=== PATIENT | male | born 1960 | race Hispanic/Latino ===

== ENCOUNTER 2022-01-08 13:14 | Emergency (ER) | payer OTHER ==
[~2022-01-08] VITALS: Ht 167.6 cm; Wt 104.3 kg
[2022-01-08 13:51] LABS: BASOPHILS # (AUTO) 0.1 (0.0-0.1); BASOPHILS % 0.7 % (0.0-1.0); EOSINOPHILS # (AUTO) 0.7 (0.0-0.4); HEMATOCRIT 37.6 % (38.2-49.6); HEMOGLOBIN 12.8 g/dL (14.0-18.0); LYMPHOCYTES # (AUTO) 1.8 (1.0-3.2); LYMPHOCYTES % 21.2 % (18.0-39.1); MEAN CORPUSCULAR HEMOGLOBIN 34.7 pg (28-32); MEAN CORPUSCULAR VOLUME 101.9 fL (81-99); MONOCYTES # (AUTO) 0.8 (0.2-0.8); MONOCYTES % 9.6 % (4.4-11.3); NEUTROPHILS # (AUTO) 4.9 (2.1-6.9); PLATELET COUNT 296 x10e3/uL (140-360); RED BLOOD COUNT 3.69 x10e6/uL (4.3-5.7); RED CELL DISTRIBUTION WIDTH 15.4 % (11.7-14.4)
[2022-01-08] MEDS ORDERED: CLONIDINE HCL 0.3 MG TAB PO ONE (14:00)
[2022-01-08 14:08] LABS: INR 0.87; PROTHROMBIN TIME 12.7 seconds (11.9-14.5)
[2022-01-08 14:09] LABS: PARTIAL THROMBOPLASTIN TIME 25.3 seconds (23.8-35.5)
[2022-01-08] MEDS ORDERED: HYDROCODONE/APAP 5MG-325MG TAB PO ONE (14:15)
[2022-01-08 14:16] LABS: ALBUMIN 3.7 g/dL (3.5-5.0); ALBUMIN/GLOBULIN RATIO 0.8 (0.8-2.0); ANION GAP 19.2 mmol/L (8-16); CALCIUM 9.4 mg/dL (8.4-10.2); CREATININE, SERUM 9.54 mg/dL (0.72-1.25); POTASSIUM 4.2 mmol/L (3.5-5.1)
[2022-01-08 14:27] LABS: CREATINE KINASE MB 1.9 ng/mL (0-5.0)
== END 2022-01-08 15:22 | disposition home or self-care (01) ==
LOC: ER 13:40
DX: R07.9 Chest pain, unspecified (principal); E11.22 Type 2 diabetes mellitus with diabetic chronic kidney disease; I12.0 Hypertensive chronic kidney disease with stage 5 chronic kidney disease or end stage renal disease; N18.6 End stage renal disease; Z99.2 Dependence on renal dialysis
CPT/HCPCS: 36415; 71045; 80053; 82550; 82553; 84484; 85025; 85610; 85730; 93005; 99284

== ENCOUNTER 2022-03-08 19:17 | Observation (INO) | payer OTHER ==
[~2022-03-08] VITALS: Ht 167.6 cm; Wt 108.0 kg
[2022-03-08 19:41] LABS: BASOPHILS # (AUTO) 0.1 (0.0-0.1); BASOPHILS % 0.9 % (0.0-1.0); EOSINOPHILS # (AUTO) 0.8 (0.0-0.4); EOSINOPHILS % 10.7 % (0.0-6.0); HEMATOCRIT 33.5 % (38.2-49.6); HEMOGLOBIN 10.7 g/dL (14.0-18.0); LYMPHOCYTES # (AUTO) 1.5 (1.0-3.2); LYMPHOCYTES % 19.8 % (18.0-39.1); MEAN CORPUSCULAR HGB CONC 31.9 g/dL (31-35); MEAN CORPUSCULAR VOLUME 103.4 fL (81-99); MONOCYTES # (AUTO) 0.7 (0.2-0.8); MONOCYTES % 8.3 % (4.4-11.3); NEUTROPHILS # (AUTO) 4.7 (2.1-6.9); NEUTROPHILS % 59.9 % (38.7-80.0); PLATELET COUNT 258 x10e3/uL (140-360); RED BLOOD COUNT 3.24 x10e6/uL (4.3-5.7); RED CELL DISTRIBUTION WIDTH 13.7 % (11.7-14.4)
[2022-03-08 20:06] LABS: ALBUMIN 3.8 g/dL (3.5-5.0); ANION GAP 19.8 mmol/L (8-16); CALCIUM 8.2 mg/dL (8.4-10.2); CREATININE, SERUM 11.88 mg/dL (0.72-1.25); POTASSIUM 5.8 mmol/L (3.5-5.1)
[2022-03-08 20:17] LABS: CREATINE KINASE MB 1.4 ng/mL (0-5.0)
[2022-03-08] MEDS ORDERED: DEXTROSE 50% SYRINGE 50 ML IV STA (20:18)
[2022-03-08] MEDS ORDERED: CALCIUM CHLORIDE 10% 1.36 MEQ/ML 10ML SYR IV STA (20:18)
[2022-03-08] MEDS ORDERED: SODIUM BICARBONATE 8.4% INJ 50 ML SYR IV STA (20:18)
[2022-03-08] MEDS ORDERED: DEXTROSE 50% SYRINGE 50 ML IV PRN (20:30)
[2022-03-08] MEDS ORDERED: INSULIN REGULAR, HUMAN 100 UNIT/1 ML IV ONE (20:30)
[2022-03-08] MEDS ORDERED: SOD POLYSTYRENE SULFONATE SUSP 15 GM/60 ML BTL PO ONE (20:30)
[2022-03-08] MEDS ORDERED: ONDANSETRON HCL INJ 2MG/ML 2ML 2 MG/ML VIAL IV PRN (20:30)
[2022-03-08] MEDS ORDERED: INSULIN REGULAR, HUMAN 100 UNIT/1 ML ONE (20:38)
[2022-03-08] MEDS: INSULIN REGULAR, HUMAN 100 UNIT/1 ML SQ SCH (21:00)
[2022-03-08 21:58] VITALS: BP 155/83
[2022-03-08] MEDS ORDERED: SODIUM CHLORIDE 0.9% 1000ML 2,000 ML ONE (22:04)
[2022-03-08] MEDS ORDERED: HYDRALAZINE HCL 20 MG/ML VIAL IV PRN (22:30)
[2022-03-08 23:11] VITALS: BP 246/106
[2022-03-09] VITALS (9 sets, daily range): BP systolic 127–211; BP diastolic 60–102
[2022-03-09] MEDS ORDERED: NIFEDIPINE CR 30 MG TAB PO ONE (00:30)
[2022-03-09] MEDS: HEPARIN SOD (PORCINE) 5,000 UNIT/ML VIAL SC SCH ×3 (00:31→20:51)
[2022-03-09] MEDS: ATORVASTATIN 10 MG TAB PO SCH ×2 (00:37→20:46)
[2022-03-09] MEDS ORDERED: NIFEDIPINE ER30 M1 PO (00:43)
[2022-03-09] MEDS ORDERED: LASIX10 MG/ML PO (00:43)
[2022-03-09] MEDS ORDERED: RENA-VITE TABL0.8 MG PO (00:43)
[2022-03-09] MEDS ORDERED: RENAGEL800 MG PO (00:43)
[2022-03-09] MEDS ORDERED: METOPROLOL SUCC25 MG PO (00:43)
[2022-03-09 06:56] LABS: BASOPHILS # (AUTO) 0.1 (0.0-0.1); BASOPHILS % 0.8 % (0.0-1.0); EOSINOPHILS # (AUTO) 0.8 (0.0-0.4); EOSINOPHILS % 9.8 % (0.0-6.0); HEMATOCRIT 35.3 % (38.2-49.6); HEMOGLOBIN 11.3 g/dL (14.0-18.0); LYMPHOCYTES # (AUTO) 1.4 (1.0-3.2); LYMPHOCYTES % 17.9 % (18.0-39.1); MEAN CORPUSCULAR HEMOGLOBIN 32.8 pg (28-32); MEAN CORPUSCULAR VOLUME 102.6 fL (81-99); MONOCYTES # (AUTO) 0.6 (0.2-0.8); MONOCYTES % 8.1 % (4.4-11.3); NEUTROPHILS # (AUTO) 4.9 (2.1-6.9); PLATELET COUNT 259 x10e3/uL (140-360); RED BLOOD COUNT 3.44 x10e6/uL (4.3-5.7); RED CELL DISTRIBUTION WIDTH 13.6 % (11.7-14.4)
[2022-03-09 07:23] LABS: ALBUMIN 3.8 g/dL (3.5-5.0); ALBUMIN/GLOBULIN RATIO 1.1 (0.8-2.0); ANION GAP 18.7 mmol/L (8-16); CALCIUM 8.8 mg/dL (8.4-10.2); CREATININE, SERUM 9.78 mg/dL (0.72-1.25); POTASSIUM 4.7 mmol/L (3.5-5.1)
[2022-03-09] MEDS: INSULIN REGULAR, HUMAN 100 UNIT/1 ML SQ SCH ×4 (07:30→20:25)
[2022-03-09] MEDS: SEVELAMER CARBONATE 800 MG TAB PO SCH ×3 (09:25→18:00)
[2022-03-09] MEDS: NIFEDIPINE CR 30 MG TAB PO SCH (09:26)
[2022-03-09] MEDS: ASPIRIN 81 MG CHEW TAB PO SCH (09:26)
[2022-03-09] MEDS ORDERED: LACTULOSE SYRUP 20 GM/30 ML UDC PO PRN (12:15)
[2022-03-09] MEDS ORDERED: Docusate Sodium PO (13:37)
[2022-03-09] MEDS ORDERED: ASPIRIN CHEW81 MG PO (13:37)
[2022-03-09] MEDS ORDERED: LIPITOR10 MG PO (13:37)
[2022-03-09] MEDS ORDERED: SODIUM CHLORIDE 0.9% 1000ML 1,000 ML ONE (14:02)
[2022-03-09] MEDS: DOCUSATE SODIUM 100 MG CAP PO SCH ×2 (15:00→20:46)
[2022-03-09] MEDS: POLYETHYLENE GLYCOL 3350 17 GM PACK PO SCH (18:00)
[2022-03-10 04:00] VITALS: BP 175/90
[2022-03-10 07:08] LABS: ANION GAP 16.4 mmol/L (8-16); CALCIUM 8.8 mg/dL (8.4-10.2); CREATININE, SERUM 8.13 mg/dL (0.72-1.25); POTASSIUM 4.4 mmol/L (3.5-5.1)
[2022-03-10] MEDS: INSULIN REGULAR, HUMAN 100 UNIT/1 ML SQ SCH (07:30)
[2022-03-10 07:54] VITALS: BP 174/81
[2022-03-10 08:00] VITALS: BP 174/81
[2022-03-10] MEDS: POLYETHYLENE GLYCOL 3350 17 GM PACK PO SCH (08:39)
[2022-03-10] MEDS: DOCUSATE SODIUM 100 MG CAP PO SCH (08:39)
[2022-03-10] MEDS: ASPIRIN 81 MG CHEW TAB PO SCH (08:39)
[2022-03-10] MEDS: HEPARIN SOD (PORCINE) 5,000 UNIT/ML VIAL SC SCH (08:44)
[2022-03-10] MEDS: SEVELAMER CARBONATE 800 MG TAB PO SCH (08:49)
[2022-03-10] MEDS: NIFEDIPINE CR 30 MG TAB PO SCH (08:50)
== END 2022-03-10 12:02 | disposition home or self-care (01) ==
LOC: ER 19:25 → ERHOLD 20:27 → MED/SURG3 21:45
PROVIDERS: ADMIT Internal Medicine; ATTEND Internal Medicine
DX: I12.0 Hypertensive chronic kidney disease with stage 5 chronic kidney disease or end stage renal disease (principal); E11.22 Type 2 diabetes mellitus with diabetic chronic kidney disease; N18.6 End stage renal disease; Z99.2 Dependence on renal dialysis; Z79.899 Other long term (current) drug therapy; E87.5 Hyperkalemia; Z20.822 Contact with and (suspected) exposure to COVID-19; I16.1 Hypertensive emergency; I10 Essential (primary) hypertension; J81.1 Chronic pulmonary edema; I13.11 Hypertensive heart and chronic kidney disease without heart failure, with stage 5 chronic kidney disease, or end stage renal disease
CPT/HCPCS: 36415; 71045; 80048; 80053; 82550; 82553; 82948; 83880; 84484; 85025; 93005; 94799; 99284; G0378; J0360; J1644; J1817; J7030; J7799

== ENCOUNTER 2025-03-22 10:53 | Inpatient (IN) | payer MEDICARE, OTHER ==
[2025-03-22] VITALS (7 sets, daily range): BP systolic 145–171; BP diastolic 58–76; PULSE 88–121; RESP 17–18; TEMP 99.3–100.9; O2SAT 95–98
[~2025-03-22] VITALS: Ht 167.6 cm; Wt 108.0 kg
[~2025-03-22 10:53] MED LIST: ASPIRIN CHEW81 MG PO; Docusate Sodium PO; LASIX10 MG/ML PO; LIPITOR10 MG PO; METOPROLOL SUCC25 MG PO; NIFEDIPINE ER30 M1 PO; RENA-VITE TABL0.8 MG PO; RENAGEL800 MG PO
[2025-03-22 12:54] LABS: BASOPHILS % 0.4 % (0.0-1.0); EOSINOPHILS % 2.7 % (0.0-6.0); LYMPHOCYTES % 8.6 % (18.0-39.1); MONOCYTES % 5.2 % (4.4-11.3); NEUTROPHILS % 82.7 % (38.7-80.0); RED CELL DISTRIBUTION WIDTH 14.3 % (11.7-14.4)
[2025-03-22 13:22] LABS: INR 1.21
[2025-03-22 13:31] LABS: EST GLOMERULAR FILTRATION RATE 5.0 ML/MIN (>=60)
[2025-03-22] MEDS: Morphine 4mg INJECTION 4 MG/ML INJ IV STA (13:43)
[2025-03-22] MEDS: ONDANSETRON HCL INJ 2MG/ML 2ML 2 MG/ML VIAL IV STA (13:43)
[2025-03-22] MEDS ORDERED: HYDRALAZINE HCL 20 MG/ML VIAL IV PRN (14:45)
[2025-03-22] MEDS: HYDRALAZINE HCL 20 MG/ML VIAL IV STA (14:50)
[2025-03-22] MEDS ORDERED: IOPAMIDOL 370 MG/ML 100 ML INFUS..BTL INJ ONE (14:53)
[2025-03-22] MEDS: ALBUTEROL SULF 0.083% NEB SOLN 3 ML NEB NEB STA (15:19)
[2025-03-22] MEDS: SODIUM BICARBONATE 8.4% INJ 50 ML SYR IV STA (15:22)
[2025-03-22] MEDS: CALCIUM GLUC 1 G/50 ML NACL 50 ML IV ONE (15:25)
[2025-03-22] MEDS: INSULIN REGULAR, HUMAN 100 UNIT/1 ML IV ONE (15:34)
[2025-03-22] MEDS: DEXTROSE 50% SYRINGE 50 ML IV STA (15:35)
[2025-03-22] MEDS: Morphine 4mg INJECTION 4 MG/ML INJ IV ONE (15:48)
[2025-03-22] MEDS: ONDANSETRON HCL INJ 2MG/ML 2ML 2 MG/ML VIAL IV PRN (15:48)
[2025-03-22] MEDS ORDERED: DEXTROSE 50% SYRINGE 50 ML IV PRN (22:00)
[2025-03-22] MEDS: SODIUM CHLORIDE 0.9% 1000ML 1,000 ML IV SCH (22:15)
[2025-03-23] VITALS (10 sets, daily range): BP systolic 116–191; BP diastolic 59–75; PULSE 82–114; RESP 18–20; TEMP 98.2–101.1; O2SAT 94–100
[2025-03-23] MEDS: Morphine 4mg INJECTION 4 MG/ML INJ IV PRN (01:53)
[2025-03-23 05:40] LABS: BASOPHILS % 0.3 % (0.0-1.0); EOSINOPHILS % 0.1 % (0.0-6.0); LYMPHOCYTES % 9.5 % (18.0-39.1); MONOCYTES % 7.4 % (4.4-11.3); NEUTROPHILS % 82.2 % (38.7-80.0); RED CELL DISTRIBUTION WIDTH 14.6 % (11.7-14.4)
[2025-03-23 06:07] LABS: EST GLOMERULAR FILTRATION RATE 6.0 ML/MIN (>=60)
[2025-03-23 06:23] LABS: CHOL/HDL RATIO 3.7 (3.9-4.7); LDL CHOLESTEROL 75.0 MG/DL (60-130)
[2025-03-23] MEDS: INSULIN REGULAR, HUMAN 100 UNIT/1 ML SQ SCH (07:30)
[2025-03-23] MEDS: DOCUSATE SODIUM 100 MG CAP PO SCH (09:00)
[2025-03-23] MEDS: SODIUM CHLORIDE 0.9% 1000ML 1,000 ML ONE (11:49)
[2025-03-23] MEDS: HEPARIN SOD (PORCINE) 1000 UNIT/ML SDV ONE (15:41)
[2025-03-23] MEDS ORDERED: HEPARIN SOD (PORCINE) 1000 UNIT/ML SDV IV PRN (16:00)
[2025-03-23] MEDS: NIFEDIPINE CR 30 MG TAB PO SCH (17:00)
[2025-03-23] MEDS: ATORVASTATIN 10 MG TAB PO SCH (20:46)
[2025-03-24] VITALS (8 sets, daily range): BP systolic 115–166; BP diastolic 62–77; PULSE 60–93; RESP 18–20; TEMP 97.4–101; O2SAT 94–99
[2025-03-24 07:32] LABS: EST GLOMERULAR FILTRATION RATE 6.0 ML/MIN (>=60)
[2025-03-24] MEDS ORDERED: LIDOCAINE HCL 2% LOCAL INJ 5 ML SDV VIAL INJ ONE (07:52)
[2025-03-24] MEDS ORDERED: FENTANYL CITRATE/PF 100MCG/2 ML INJ ONE ×2 (07:52→09:28)
[2025-03-24] MEDS ORDERED: ROCURONIUM BROMIDE 1 ML IV ONE (07:53)
[2025-03-24] MEDS ORDERED: PROPOFOL IV EMULSION 10 MG/ML 20 ML VIAL ONE (07:53)
[2025-03-24] MEDS ORDERED: SUCCINYLCHOLINE CHLORIDE 20 MG/ML 10ML VIAL ONE ×2 (07:53→08:30)
[2025-03-24] MEDS ORDERED: ONDANSETRON HCL INJ 2MG/ML 2ML 2 MG/ML VIAL ONE (09:01)
[2025-03-24] MEDS ORDERED: KETOROLAC TROMETHAMINE 30 MG/ML VIAL ONE (09:01)
[2025-03-24] MEDS ORDERED: DEXAMETHASONE SOD PHOS INJ 4 MG/ML SDV ONE (09:01)
[2025-03-24] MEDS ORDERED: METOCLOPRAMIDE HCL 10 MG/2ML VIAL ONE (09:01)
[2025-03-24] MEDS ORDERED: SUGAMMADEX SODIUM 200 MG/2 ML VIAL IV ONE ×2 (09:24→09:46)
[2025-03-24] MEDS ORDERED: Morphine 10mg syringe 10 MG/ML INJ ONE (09:29)
[2025-03-24] MEDS ORDERED: ONDANSETRON HCL INJ 2MG/ML 2ML 2 MG/ML VIAL IV PRN (10:00)
[2025-03-24] MEDS: LABETALOL HCL 20 MG/4 ML SYRINGE IV ONE ×2 (10:05→10:15)
[2025-03-24] MEDS: METOPROLOL TARTRATE 25 MG TAB PO SCH ×2 (12:45→21:07)
[2025-03-24] MEDS: HYDROCODONE/APAP 7.5MG-325MG 1 EA TAB PO PRN (21:08)
[2025-03-25] VITALS (7 sets, daily range): BP systolic 122–146; BP diastolic 59–81; PULSE 60–64; RESP 18–20; TEMP 97.6–98; O2SAT 97–100
[2025-03-25 08:19] LABS: BASOPHILS % 0.4 % (0.0-1.0); EOSINOPHILS % 3.1 % (0.0-6.0); LYMPHOCYTES % 9.5 % (18.0-39.1); MONOCYTES % 6.9 % (4.4-11.3); NEUTROPHILS % 79.7 % (38.7-80.0); RED CELL DISTRIBUTION WIDTH 14.3 % (11.7-14.4)
[2025-03-25 08:54] LABS: EST GLOMERULAR FILTRATION RATE 5.0 ML/MIN (>=60)
[2025-03-25] MEDS: SOD POLYSTYRENE SULFONATE SUSP 15 GM/60 ML BTL PR ONE (13:49)
[2025-03-26] VITALS (10 sets, daily range): BP systolic 104–149; BP diastolic 58–82; PULSE 60–82; RESP 18–21; TEMP 97.6–98.6; O2SAT 98–100
[2025-03-26 06:08] LABS: EST GLOMERULAR FILTRATION RATE 4.0 ML/MIN (>=60)
[2025-03-26] MEDS: PANTOPRAZOLE SOD 40 MG TABEC PO SCH (08:21)
[2025-03-26] MEDS ORDERED: PROTONIX20 MG PO (08:25)
[2025-03-26] MEDS ORDERED: HUMULIN 70100 UNIT/3 SQ (08:26)
[2025-03-26 09:14] LABS: BASOPHILS % 0.5 % (0.0-1.0); EOSINOPHILS % 12.9 % (0.0-6.0); LYMPHOCYTES % 13.9 % (18.0-39.1); MONOCYTES % 8.2 % (4.4-11.3); NEUTROPHILS % 64.2 % (38.7-80.0); RED CELL DISTRIBUTION WIDTH 14.6 % (11.7-14.4)
[2025-03-26] MEDS: ALBUMIN 25% 12.5GM 0.25 GM/ML BTL IV PRN (14:14)
[2025-03-26] MEDS: SODIUM CHLORIDE 0.9% 1000ML 2,000 ML IV PRN (14:15)
[2025-03-26] MEDS: SODIUM CHLORIDE 0.9% 250ML 250 ML ONE (16:36)
[2025-03-26] MEDS: SENNOSIDES 8.6 MG TAB PO SCH (19:55)
[2025-03-26] MEDS: PSYLLIUM 6GM PACKET PO SCH (19:55)
[2025-03-26] MEDS ORDERED: Psyllium PO (20:43)
[2025-03-26] MEDS ORDERED: Docusate Sodium PO (20:43)
[2025-03-26] MEDS ORDERED: SENOKOT8.6 MG PO (20:43)
[2025-03-26] MEDS ORDERED: ONDANSETRON ODT4 MG PO (20:45)
[2025-03-26] MEDS ORDERED: CEPHALEXIN500 MG PO (20:45)
[2025-03-26] MEDS ORDERED: METRONIDAZOLE500 MG PO (20:45)
[2025-03-29 07:11] LABS: HEPATITIS B CORE AB TOTAL Negative; HEPATITIS B SURFACE AB QUANT 632.0; HEPATITIS B SURFACE AG (P) Negative
== END 2025-03-26 21:30 | disposition home or self-care (01) | DRG 853 ==
LOC: ER 11:48 → ERHOLD 14:55 → MED/SURG 17:59
PROVIDERS: ADMIT Internal Medicine; ATTEND Internal Medicine
PROC: 3E0333Z Introduction of Anti-inflammatory into Peripheral Vein, Percutaneous Approach (ICD-10-PCS; 2025-03-22)
PROC: 0DTJ4ZZ Resection of Appendix, Percutaneous Endoscopic Approach (ICD-10-PCS; principal; 2025-03-24 08:19)
DX: A41.9 Sepsis, unspecified organism (principal); I12.0 Hypertensive chronic kidney disease with stage 5 chronic kidney disease or end stage renal disease; N18.6 End stage renal disease; E87.1 Hypo-osmolality and hyponatremia; K35.891 Other acute appendicitis without perforation, with gangrene; E87.5 Hyperkalemia; E11.22 Type 2 diabetes mellitus with diabetic chronic kidney disease; Z99.2 Dependence on renal dialysis; Z79.82 Long term (current) use of aspirin
CPT/HCPCS: 36415; 71045; 74177; 80048; 80053; 80061; 82550; 82948; 83036; 83735; 84484; 85025; 85610; 85730; 86704; 86706; 87340; 88304; 93005; 94799; 99284; C1766; J0330; J0360; J1100; J1644; J1885; J2003; J2270; J2405; J2470; J2543; J2765; J7030; J7050; J7799; Q9967